=== PATIENT | male | born 1945 | race Caucasian/White ===

== ENCOUNTER 2019-03-19 13:39 | Outpatient (CLI) | payer MEDICARE, BC ==
[~2019-03-19 13:39] MED LIST: ASCO100T5 PO; DOCU50CA6 PO; DRON5CAP PO; FLUC200T PO; GARL1CAP3 PO; HYDR-3307 PO; LEVO750T26 PO; LISI-167 PO; MULT-658 PO; NITR100C56 PO
== END 2019-03-19 23:59 | disposition home or self-care (01) ==
LOC: PETCFH 13:39
PROVIDERS: ATTEND Urology
DX: C61 Malignant neoplasm of prostate (principal); I25.10 Atherosclerotic heart disease of native coronary artery without angina pectoris; N28.1 Cyst of kidney, acquired; M47.816 Spondylosis without myelopathy or radiculopathy, lumbar region
CPT/HCPCS: 78815; A9588